=== PATIENT | female | born 1985 | race Hispanic/Latino ===

== ENCOUNTER 2022-07-06 19:18 | Emergency (ER) | payer MEDICAID, OTHER ==
[~2022-07-06] VITALS: Ht 149.9 cm; Wt 56.7 kg
[~2022-07-06 19:18] MED LIST: ACET1TAB12 PO; IBUP-2077 PO; IRON-10 PO; PREN-154 PO
[2022-07-06 20:08] LABS: BASOPHILS % (AUTO) 0.3 % (0.0-5.0); EOSINOPHILS % (AUTO) 0.1 % (0.0-8.0); HEMATOCRIT 41.1 % (36-48); LYMPHOCYTES % (AUTO) 23.2 % (21.0-51.0); MEAN CORPUSCULAR HEMOGLOBIN 28.7 pg (27.0-33.0); MEAN CORPUSCULAR HGB CONC 34.5 g/dL (32.0-36.0); MONOCYTES % (AUTO) 5.6 % (3.0-13.0); NEUTROPHILS % (AUTO) 70.5 % (40.0-77.0); PLATELET COUNT (AUTO) 227 K/uL (130-400); RED BLOOD CELL COUNT(AUTO) 4.95 MIL/uL (4.00-5.50); RED CELL DISTRIBUTION WIDTH 13.7 % (11.0-15.5); WHITE BLOOD COUNT (AUTO) 7.7 K/uL (4.8-10.8)
[2022-07-06 20:22] LABS: CREATININE 0.7 mg/dL (0.5-1.5)
[2022-07-06 20:27] LABS: ALBUMIN 3.9 g/dL (3.5-5.0); APPEARANCE,URINE CLEAR (CLEAR); BILIRUBIN,URINE NEGATIVE (NEGATIVE); COLOR,URINE YELLOW (YELLOW); GLUCOSE, URINE (UA) NEGATIVE (NEGATIVE); KETONES,URINE 150 mg/dL (NEGATIVE); LEUKOCYTE ESTERASE ,URINE NEGATIVE Leu/uL (NEGATIVE); NITRATE,URINE NEGATIVE (NEGATIVE); OCCULT BLOOD,URINE SMALL (NEGATIVE); PROTEIN,URINE 300 mg/dL (NEGATIVE); TOTAL PROTEIN, SERUM 9.1 g/dL (6.0-8.3)
[2022-07-06 20:31] LABS: HCG,QUALITATIVE URINE NEGATIVE (NEGATIVE)
[2022-07-06 21:05] LABS: BACTERIA,URINE RARE /HPF (None Seen); MUCUS,URINE RARE LPF (None Seen); SQUAMOUS EPITHELIAL CELL,UR RARE /HPF (0-2)
[2022-07-06] MEDS ORDERED: PANTOPRAZOLE 40 MG/VIAL IVP ONE (23:00)
[2022-07-06] MEDS ORDERED: MAG/ALUM/SIMETH 30 ML UDCUP PO SCH (23:00)
[2022-07-06] MEDS ORDERED: LIDOCAINE HCL 2% VISCOUS 15 ML UDCUP ONE (23:20)
[2022-07-07 01:00] VITALS: BP 117/85
[2022-07-07] MEDS ORDERED: PANT40GR PO (01:08)
[2022-07-07] MEDS ORDERED: MAGIC240 MM (01:09)
== END 2022-07-07 01:59 | disposition home or self-care (01) ==
LOC: EDH 19:18
DX: R07.89 Other chest pain (principal); R11.2 Nausea with vomiting, unspecified; Z20.822 Contact with and (suspected) exposure to COVID-19; Z98.51 Tubal ligation status; Z98.890 Other specified postprocedural states
CPT/HCPCS: 99285; 96374; 71045; 87635; 84484; 80053; 85025; 87880; 87804 ×2; 81001; 81025; 36415; 93005; C9803; C9113